=== PATIENT | male | born 1960 | race Caucasian/White ===

== ENCOUNTER 2018-02-04 08:44 | Day surgery (SDC) | payer BC ==
[~2018-02-04] VITALS: Ht 175.3 cm; Wt 95.2 kg
[~2018-02-04 08:44] MED LIST: GLIP5TAB11 PO; LISI10TA7 PO; METF10004 PO; SITA50TA PO; SODIUM CHLORIDE 0.9% 1000ML 1,000 ML IV ONE
[2018-02-04 09:49] VITALS: BP 183/89
[2018-02-04 10:41] VITALS: BP 132/77
== END 2018-02-04 11:15 ==
LOC: DAH 08:44 → ENDO 08:44
PROVIDERS: ATTEND Internal Medicine Gastroenterology
DX: Z12.11 Encounter for screening for malignant neoplasm of colon (principal); I10 Essential (primary) hypertension; E11.9 Type 2 diabetes mellitus without complications; Z98.890 Other specified postprocedural states; Z79.899 Other long term (current) drug therapy; Z68.41 Body mass index [BMI] 40.0-44.9, adult
CPT/HCPCS: 45378; 82948 ×2; A4606; J7030